=== PATIENT | female | born 1965 | race Caucasian/White ===

== ENCOUNTER → 2017-05-27 | Outpatient (CLI) | payer OTHER ==
[~2017-05-27] VITALS: Ht 163.8 cm; Wt 83.5 kg
[~2017-05-27] MED LIST: ADVIL,NUPRIN,M200 MG PO; ALEVE220 M2 PO; CIPRO500 MG PO; FLOMAX0.4 MG PO; KENALOG,ARISTOC80 G1 TP; MOTRIN800 MG PO; OXYCODONE-ACET1 EACH PO; PERCOCET 5/31 TABLET PO; ZOFRAN ODT4 MG PO; ZOFRAN4 MG PO
== END | disposition home or self-care (01) ==
LOC: AMB 10:00
DX: Z12.11 Encounter for screening for malignant neoplasm of colon (principal); D12.0 Benign neoplasm of cecum; D12.2 Benign neoplasm of ascending colon; K57.90 Diverticulosis of intestine, part unspecified, without perforation or abscess without bleeding
CPT/HCPCS: 88305